=== PATIENT | male | born 1985 | race Caucasian/White ===

== ENCOUNTER 2017-03-26 17:41 | Observation (INO) | payer OTHER ==
[~2017-03-26] VITALS: Ht 172.7 cm; Wt 92.9 kg
--- NOTE | ~2017-03-26 | ER ---
PATIENT'S NAME: PIO VIDALSHUA [facility] AGE: 31 Y [address] ROOM: [place] [address] LOCATION: [facility] ADMIT DATE: 03/26/2017 ER/Outpatient Report DISCHARGE DATE: FAMILY PHYSICIAN: PHYSICIAN, UNKNOWN ATTENDING PHYSICIAN: Rajendra Tineo Time of Arrival: 1738 hours. Time of Exam: 1740 hours. CHIEF COMPLAINT: Ankle injury. HISTORY OF PRESENT ILLNESS: Approximately 2 hours prior to arrival, the patient was jumping on a trampoline, he states he did a back flip, landed it, and then his ankle gave out on him. He was seen at [facility] in [place]. They contacted Dr. Tineo who accepted the patient, and the patient was transferred here for care by Dr. Tineo. No other injury with the incident. ALLERGIES: NO KNOWN ALLERGIES. MEDICATIONS: No current medications. PAST MEDICAL HISTORY: Umbilical hernia. PAST SURGERIES: Surgery to the left ankle and femur fracture. SOCIAL HISTORY: Denies use of tobacco cigarettes, but does chew tobacco. Drinks alcohol occasionally, did have 2 beers today. REVIEW OF SYSTEMS: All negative other than those mentioned in the HPI. PHYSICAL EXAMINATION: VITAL SIGNS: He weighed 87.7 kg. Blood pressure is 141/77, pulse of 87, respirations 16, temperature of 99.5 tympanic, and O2 saturation was 97% on room air. GENERAL: He is awake, alert, and oriented x4. SKIN: [place], warm, and dry. RESPIRATIONS: Even and nonlabored. Lung sounds are clear throughout. PATIENT'S NAME: PIO VIDALSHUA [facility] AGE: 31 Y [address] ROOM: [address] [address] LOCATION: [facility] ADMIT DATE: 03/26/2017 ER/Outpatient Report DISCHARGE DATE: FAMILY PHYSICIAN: PHYSICIAN, UNKNOWN ATTENDING PHYSICIAN: Rajendra Tineo HEART: Regular rate and rhythm. EXTREMITIES: Right foot-ankle area is distorted. It is same temperature as his left. He does have a strong pulse. Dr. Tineo was contacted, he came in and saw the patient, please refer to his dictation. IMPRESSION: Dislocation and fracture of the right ankle. PLAN: The patient to surgery for care of Dr. Tineo. LORIN NUGENT APRN FOR MD JOYCE OLSON/modl /[id number] d: 03/27/17 0010 t: 04/04/17 1934, OUTPATIENT REPORT
--- NOTE | ~2017-03-26 | HP ---
PATIENT'S NAME: YOUNG [facility] AGE: 31 Y [address] ROOM: [place] [address] LOCATION: [facility] ADMIT DATE: 03/26/2017 History & Physical DISCHARGE DATE: FAMILY PHYSICIAN: PHYSICIAN, UNKNOWN ATTENDING PHYSICIAN: Rajendra Tineo DATE OF SERVICE: 03/26/2017 TIME: 6:00 p.m. HISTORY OF PRESENT ILLNESS: Mr. Rose is a healthy 31-year-old white male. He was injured on a trampoline at his home this afternoon. Fracture dislocation closed of the right ankle. Denies other injuries. Initial evaluation at the [place] [facility]. Last ate at 2 o'clock. Had 2 beers today. MEDICATIONS: None. ALLERGIES: NONE KNOWN. PAST MEDICAL HISTORY: He is healthy. He has had previous significant trauma to the left lower extremity. SOCIAL HISTORY: Does not smoke. Chews 2 cans of tobacco a week. Occasional alcohol. No drug abuse. REVIEW OF SYSTEMS: As above. FAMILY MEDICAL HISTORY: Noncontributory. PERSONAL SOCIAL HISTORY: . Lives with his family in [place]. He works for [employer] in [employer]. PHYSICAL EXAMINATION: GENERAL: White male, moderate distress. HEENT: Hears and sees. Airway is clear. NECK: Nontender. PATIENT'S NAME: PIO ROSESHUA [facility] AGE: 31 Y [address] ROOM: [place] [address] LOCATION: [facility] ADMIT DATE: 03/26/2017 History & Physical DISCHARGE DATE: FAMILY PHYSICIAN: PHYSICIAN, UNKNOWN ATTENDING PHYSICIAN: Rajendra Tineo BACK: Nontender. LUNGS: He is able to take in a deep breath. ABDOMEN: Soft, nontender. HEART: Pulse rate is regular. MUSCULOSKELETAL: Right ankle is deformed. The skin is tightly tented from the obvious dislocated ankle. The wound is not open. Distal pulses palpable. The right foot is neurovascularly intact. IMAGING DATA: X-rays show right ankle dislocation, significant trimalleolar fragment fracture with a large posterior fragment. ASSESSMENT AND PLAN: We will emergently relocate the ankle in the emergency room to prevent loss of skin coverage over the ankle. We will plan for a surgery today before there is more swelling for open reduction and internal fixation. Risks, benefits, and alternatives have all been discussed. 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 Risks, benefits, and alternatives were all discussed in detail. RAJENDRA TINEO MD DPM/messi /[id number] D: [id number] T: [id number] HISTORY & PHYSICAL
--- NOTE | ~2017-03-26 | OR ---
PATIENT'S NAME: MADHURI VIDAL [facility] AGE: 31 Y [address] ROOM: [address] [address] LOCATION: [facility] ADMIT DATE: 03/26/2017 OR/Procedure Report DISCHARGE DATE: FAMILY PHYSICIAN: PHYSICIAN, UNKNOWN ATTENDING PHYSICIAN: Andreas Tineo SURGEON: Andreas Tineo MD BOOK CLEANER: DATE OF PROCEDURE: 03/26/2017 DIAGNOSIS: Dislocated right ankle with a trimalleolar fracture with skin at risk. PROCEDURE: Emergent relocation of right ankle dislocation and splinting. ANESTHESIA: IV narcotics. INDICATIONS: The patient with fracture dislocation of the right ankle, skin is at risk with tension from the dislocation. Urgent relocation is indicated to protect the skin. Risks, benefits, and alternatives were discussed. DESCRIPTION OF PROCEDURE: In the emergency room, the right ankle was carefully relocated and placed in a well-padded posterior splint with stirrup. Foot was neurovascularly intact at the completion of the procedure, and all tension was off the skin. ANDREAS TINEO MD DPM/modl /[id number] d: 03/27/17 0027 t: 03/27/17 1657, OPERATIVE SUMMARY
--- NOTE | ~2017-03-26 | OR ---
PATIENT'S NAME: PIO ROSESHUA [facility] AGE: 31 Y [address] ROOM: [address] [address] [place] [facility] [place]MIT DATE: 03/26/2017 OR/Procedure Report DISCHARGE DATE: FAMILY PHYSICIAN: PHYSICIAN, UNKNOWN ATTENDING PHYSICIAN: Rajendra Patel SURGEON: Rajendra Patel MD CLINIC CMA: DATE OF PROCEDURE: 03/26/2017 DIAGNOSES: 1. Unstable dislocation, posterior right ankle. 2. Trimalleolar right ankle fracture. PROCEDURE: Open reduction and internal fixation, right trimalleolar ankle fracture. ANESTHESIA: General. INDICATION: Mr. Rose with unstable closed right ankle trimalleolar ankle fracture, was emergently relocated in the emergency room. Now for open reduction and internal fixation. Risks, benefits, and alternatives have been discussed. 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 DESCRIPTION OF PROCEDURE: Mr. Rose was taken to the operating room, 2 g of Kefzol given intravenously for prophylaxis. General anesthetic was administered via endotracheal tube. He was turned prone on rolls. All pressure points were carefully checked and padded. Tourniquet high about the right thigh. Right leg prepared with DuraPrep and draped sterilely. Leg was exsanguinated. Tourniquet was inflated to 300 mmHg. A 2.5 cm incision about the medial malleolus and the anterior medial joint line. Fragments of bone were washed out from the joint. Hematoma was drained. It was irrigated. The fracture fragment could be easily reduced. A 12 cm posterolateral incision parallel to the Achilles tendon on the lateral aspect, dissection through subcutaneous tissues to the fascia. Saphenous vein and sural nerve were protected. Interval between the peroneal tendons and the flexor hallucis longus was established. Dissection down to the posterior fibula and tibia. The flexor hallucis longus was retracted protecting the posterior tibial artery and nerve. Large posterior malleolar fragment making the ankle joint very unstable. Segmental displaced comminuted fractures of the fibula. These were easily reduced. For fixation of the fibula, required a DCP plate, small fragment for strength, tubular plate was not adequate, eight hole plate. Best fixation of the posterior malleolus included a buttress plate. This was with the small fragment set. Two screws were proximal to the fragment, three screws were after it was reduced placed across the fragment for added fixation. For added stability, a syndesmotic screw was placed through the PATIENT'S NAME: MADHURI ROSE [facility] AGE: 31 Y [address] ROOM: [address] [address] [place] [facility] [place] DATE: 03/26/2017 OR/Procedure Report DISCHARGE DATE: FAMILY PHYSICIAN: PHYSICIAN, UNKNOWN ATTENDING PHYSICIAN: Rajendra Patel fibula plate. Wound was irrigated. Fascia was closed with 2-0 Vicryl. Subcutaneous tissues closed with 2-0 Vicryl. Skin was closed with braulio. The medial malleolar fracture was reduced. A 4.0 cannulated AO Synthes screw was placed with washer. Joint was again irrigated. The capsule was closed with 2-0 Vicryl, subcutaneous tissues closed with 2-0 Vicryl, skin was closed with braulio. The tourniquet was deflated after 90 minutes. The ankle was stable. Fluoroscopic images showed anatomic reduction. Placed in a bulky Andrade dressing with cotton padding and posterior splints. COMPLICATIONS: Procedure was done without complication. ESTIMATED BLOOD LOSS: Estimated blood loss from the procedure was nil. FLUID REPLACEMENT: Crystalloids. SPECIMENS: None. DRAINS: None. TOURNIQUET TIME: 90 minutes. FINDINGS: Anatomic reduction of the right ankle with protestant of stability of the joint. RAJENDRA PATEL MD DPM/messi /[id number] d: 03/27/175 t: 03/27/17 1700, OPERATIVE SUMMARY
--- NOTE | ~2017-03-26 | DS ---
PATIENT'S NAME: MADHRUI ROSE [facility] AGE: 31 Y [address] ROOM: [address] [address] LOCATION: [facility] ADMIT DATE: 03/26/2017 Discharge Summary DISCHARGE DATE: FAMILY PHYSICIAN: Physician, Unknown ATTENDING PHYSICIAN: Andreas Patel HOSPITAL COURSE: Mr. Rose was taken to the operating room from the emergency room. In the emergency room, his dislocation of his right ankle was urgently relocated, had open reduction and internal fixation of the complex trimalleolar fracture, was placed in a Andrade dressing. Nerve block was placed for pain control. On postoperative day 1, the block has resolved. Feels sensation. Moves toes with full strength. No pain on passive stretch. No edema. Good capillary refill. Splint is intact. He is eating without nausea and vomiting, voiding. We will teach to be nonweightbearing with crutches or scooter. Off work at this time. Regular diet. Work on range of motion and leg lifts to condition his leg. Discussed risk of DVT. Will take one aspirin today to minimize the chance of DVT. If he develops any symptoms, will call the office. Waves for pain. Transition to Tylenol when possible. Unable to work at this time. Will follow up in the office on April 17, 2017, at 9 o'clock a.m. Will most likely return to light duty work at that time. ANDREAS PATEL MD DPM/messi /[id number] d: 03/27/17 1609 t: 03/27/17 170, DISCHARGE SUMMARY
--- NOTE | 2017-03-26 23:22 | NUR ---
PATIENT WAS JUMPING ON A TRAMPOLINE AT HOME AND DOING BACKFLIPS AND LANDED ON THE TRAMPOLINE AND HEARD A POP IN HIS R) ANKLE AND STATED THAT HIS FOOT WAS IN ANOTHER DIRECTION. THE AMBULANCE WAS CALLED AND TAKEN TO THE [facility].
--- NOTE | 2017-03-27 04:53 | NUR ---
Significant Event: Up from PACU at 2310. Dressing is clean, dry and intact. Slightly numb to top of upper lower leg, but numb to foot and unable to wiggle toes. On room air. Voids without difficulty. NWB R) leg. Percocet at 0427. [place] at 2349. Follow up:
[2017-03-27] MEDS ORDERED: PERCOCET 5-3251 EACH PO (13:50)
[2017-03-27] MEDS ORDERED: ASPIRIN325 MG PO (13:50)
--- NOTE | 2017-03-27 14:15 | NUR ---
D: ORDERS RECEIVED FOR THE PATIENT TO BE DISCHARGED TO HOME TODAY WITH FAMILY. I: DISMISSAL INSTRUCTIONS WERE PREPARED AND REVIEWED WITH THE PATIENT AND HIS FAMILY VIRTALLY. THE FOLLOWING INFORMATION WAS DISCUSSED INCLUDING [place] TEACHING SHEETS PROVIDED: DISCHARGE INSTRUCTIONS-SPLINT CARE, UNDERSTANDING AN ANKLE FRACTURE, UNDERSTANDING ANKLE FRACTURE OPEN REDUCTION AND INTERNAL FIXATION, PERCOCET, NORCO, ASPIRIN, AND PREVENTING DVT. REVIEWED NEW PRESCRIPTION THAT THEY WILL NEED TO GET FILLED AND FOLLOW UP APPOINTMENTS. R: THE PATIENT AND HIS FAMILY VERBALIZED UNDERSTANDING OF THE DISMISSAL EDUCATION AT THE TIME FO TEACHING WITH NO FURTHER QUESTIONS. P: THE ABOVE INFORMATION WAS SHARED WITH THE PRIMARY NURSE AND THE CHARGE NURSE THAT THE DISMISSAL EDUCATION WAS COMPLETED. THE PATIENT IS READY FOR DISCHARGE TO THE FRONT DOOR VIA WHEEL CHAIR BY NURSING STAFF.
[2017-03-27] MEDS ORDERED: NORCO 5-325 TA1 EACH PO (15:54)
--- NOTE | 2017-03-27 16:17 | NUR ---
Dismissal Note: Ambulates with one assist and crutches. Voids per urinal. Cast reinforced with ABD and carolee wrap this am, C/D/I at this time. [place], Percocet and Dilaudid IVP for pain, see eMAR. Encouraged to ice and elevate ankle at all times. Giacomo education and dismissal instruction provided by Pop Lazar Nurse. Dismissed to home with family.
== END 2017-03-27 16:15 | disposition disaster alternative care site (69) ==
LOC: GACC 17:41 → GMSU 18:22
PROVIDERS: ADMIT Orthopaedic Surgery
PROC: 0QHG04Z Insertion of Internal Fixation Device into Right Tibia, Open Approach (ICD-10-PCS; principal; 2017-03-26)
DX: S82.851A Displaced trimalleolar fracture of right lower leg, initial encounter for closed fracture (principal); F17.220 Nicotine dependence, chewing tobacco, uncomplicated; Z98.890 Other specified postprocedural states; W09.8XXA Fall on or from other playground equipment, initial encounter; Y93.44 Activity, trampolining; Y92.019 Unspecified place in single-family (private) house as the place of occurrence of the external cause
CPT/HCPCS: C1713; G0378; J0690; J1170; J3010; J7120

== ENCOUNTER 2017-04-07 13:12 | Emergency (ER) | payer OTHER ==
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
[~2017-04-07 13:12] MED LIST: ASPIRIN325 MG PO; NORCO 5-325 TA1 EACH PO; PERCOCET 5-3251 EACH PO
[2017-04-07 13:54] LABS: BASOPHIL % 0.3 %; EOSINOPHIL # 0.1 K/uL (0.0-0.5); EOSINOPHIL % 0.6 %; HEMATOCRIT 42.1 % (37.0-53.0); HEMOGLOBIN 14.1 g/dL (12.0-17.0); IMMATURE GRANULOCYTE # 0.1 K/uL (0.0-0.3); IMMATURE GRANULOCYTE % 0.6 %; MCHC 33.5 gm/dL (32.0-36.5); MCV 86.6 fl (83.0-98.0); MONOCYTE # 0.5 K/uL (0.0-1.0); MONOCYTE % 4.8 %; MPV 10.2 fl (9.4-12.4); NEUTROPHIL # (ANC) 8.7 K/uL (1.4-9.0); NEUTROPHIL % 83.7 %; NRBC % 0 /100WBC (0-0.00); PLATELET COUNT 279 K/uL (150-450); RBC 4.86 M/uL (4.00-6.00); RDW-CV 13.1 % (11.9-14.6); WBC 10.4 K/uL (4.0-11.0)
== END 2017-04-07 14:13 | disposition disaster alternative care site (69) ==
LOC: GMED 13:12
PROVIDERS: Physician Assistant Medical
DX: F41.9 Anxiety disorder, unspecified (principal); F17.220 Nicotine dependence, chewing tobacco, uncomplicated; Z87.81 Personal history of (healed) traumatic fracture; Z87.828 Personal history of other (healed) physical injury and trauma; Z98.890 Other specified postprocedural states

== ENCOUNTER → 2017-04-17 | Outpatient (CLI) | payer OTHER | END | disposition disaster alternative care site (69) | LOC: GRAD 08:00 | DX: S82.891D Other fracture of right lower leg, subsequent encounter for closed fracture with routine healing (principal); Z98.890 Other specified postprocedural states; X58.XXXD Exposure to other specified factors, subsequent encounter ==